=== PATIENT | female | born 1945 | race Caucasian/White ===

== ENCOUNTER → 2021-04-28 | Day surgery (SDC) | payer MEDICARE ==
[~2021-04-28] VITALS: Ht 167.6 cm; Wt 77.6 kg
[~2021-04-28] MED LIST: ACEBUTOLOL HCL200 MG PO; CALCIUM PO; CALCIUM500 MG PO; CENTRUM SILVER1 EAC1 PO; HYDROCODON-ACE1 EAC2 PO; LO-DOSE ASPIRIN81 MG PO; LOSARTAN POTASS25 MG PO; OMEPRAZOLE40 MG PO; VITAMIN C PO; VITAMIN D PO
== END | disposition home or self-care (01) ==
LOC: OR 07:10
PROVIDERS: Orthopaedic Surgery
DX: S52.552A Other extraarticular fracture of lower end of left radius, initial encounter for closed fracture (principal); I10 Essential (primary) hypertension; K21.9 Gastro-esophageal reflux disease without esophagitis; W10.8XXA Fall (on) (from) other stairs and steps, initial encounter; Z20.822 Contact with and (suspected) exposure to COVID-19; Z88.5 Allergy status to narcotic agent; Z79.82 Long term (current) use of aspirin; Z90.49 Acquired absence of other specified parts of digestive tract
CPT/HCPCS: 36415; 73110; 76000; 80048; 93005; C1713; J0690; J1100; J2001; J2405; J2704; J2795; J7030; J7120